=== PATIENT | female | born 1965 | race African-American/Black ===

== ENCOUNTER 2017-04-14 09:02 | Inpatient (IN) | payer MEDICARE, MEDICAID ==
[~2017-04-14] VITALS: Ht 170.2 cm; Wt 51.7 kg
[~2017-04-14 09:02] MED LIST: INSU3INS6 SUBCUT
[2017-04-14] MEDS ORDERED: DEXTROSE 50% WATER 50ML SYRINGE IV ONE ×2 (09:58→10:00)
[2017-04-14] MEDS ORDERED: DEXTROSE 5% WATER 1,000 ML IV ONE (10:00)
[2017-04-14 10:30] LABS: BASOPHILS % 0.9 % (0.0-2.0); HEMATOCRIT. 29.1 % (36.0-48.0); HEMOGLOBIN. 9.8 g/dL (12.0-16.0); LYMPHOCYTES % 38.3 % (20.0-50.0); MEAN CORPUSCULAR HEMOGLOBIN 31.2 pg (28.0-32.0); MEAN PLATELET VOLUME 8.7 fl (7.4-10.4); MONOCYTES % 12.7 % (2.0-8.0); NEUTROPHILS % 45.1 % (40.0-76.0); PLATELET 152 x1000/uL (130-400); RED BLOOD CELL COUNT 3.13 mill/uL (4.2-5.4); RED CELL DISTRIBUTION WIDTH 15.6 % (11.6-14.6)
[2017-04-14] MEDS ORDERED: DOPAMINE 400MG PREMIX 250 ML IV ONE (10:30)
[2017-04-14 10:39] LABS: INR 1.1; PARTIAL THROMBOPLASTIN TIME 32.3 sec (24.0-34.0); PROTHROMBIN TIME 11.3 sec
[2017-04-14 10:46] LABS: CARBON DIOXIDE 31 mEq/L (21-32); CHLORIDE 100 mEq/L (98-107); CREATINE KINASE 74 IU/L (26-192)
[2017-04-14 10:47] LABS: TROPONIN I < 0.02 ng/mL (0.00-0.04)
[2017-04-14] MEDS ORDERED: NA PHOS,M-B/NA PHOS,DI-BA ENEMA 118ML PR PRN (14:45)
[2017-04-14] MEDS ORDERED: ACETAMINOPHEN 325MG TABLET PO PRN (14:45)
[2017-04-14] MEDS ORDERED: CLONIDINE 0.1MG TABLET PO PRN (14:45)
[2017-04-14] MEDS ORDERED: DIPHENHYDRAMINE 50MG/ML VIAL IV PRN (14:45)
[2017-04-14] MEDS ORDERED: ONDANSETRON HCL 4MG/2ML VIAL IV PRN (14:45)
[2017-04-14] MEDS ORDERED: DOCUSATE SODIUM 100MG CAPSULE PO PRN (14:45)
[2017-04-14] MEDS ORDERED: MAGNESIUM/ALUMINUM HYDROXIDE/SIMETHICONE 30ML UDC PO PRN (14:45)
[2017-04-14] MEDS ORDERED: DEXTROSE 50% WATER 50ML SYRINGE IV PRN (14:45)
[2017-04-14] MEDS ORDERED: IPRATROPIUM/ALBUTEROL 0.5-3(2.5)MG/3ML NEB INH PRN (14:45)
[2017-04-14] MEDS: BLOOD SUGAR DIAGNOSTIC STRIP TEST SCH ×3 (16:44→20:58)
[2017-04-14] MEDS: INSULIN LISPRO 100 UNITS/ML SUBCUT SCH ×2 (17:42→21:24)
[2017-04-14] MEDS ORDERED: INSULIN LISPRO 100 UNITS/ML SUBCUT SCH (18:20)
[2017-04-14] MEDS: SODIUM CHLORIDE 0.9% INJ 3ML FLUSH IVF SCH (21:22)
[2017-04-14] MEDS ORDERED: INSULIN DETEMIR UD 100 UNITS/ML SYR SUBCUT SCH (22:00)
[2017-04-15] MEDS: BLOOD SUGAR DIAGNOSTIC STRIP TEST SCH ×2 (06:10→12:10)
[2017-04-15] MEDS: INSULIN LISPRO 100 UNITS/ML SUBCUT SCH ×2 (06:36→14:14)
[2017-04-15] MEDS: SODIUM CHLORIDE 0.9% INJ 3ML FLUSH IVF SCH ×2 (06:36→14:08)
[2017-04-15 15:50] VITALS: BP 122/81
== END 2017-04-15 16:50 | disposition home or self-care (01) | DRG 637 ==
LOC: ER 09:29 → EDBEDREQSVC 13:16 → EDBEDREQ 13:16 → ENRESERV 13:31 → 8WST 14:20
PROVIDERS: ADMIT Internal Medicine; ATTEND Internal Medicine
DX: E10.649 Type 1 diabetes mellitus with hypoglycemia without coma (principal); G93.41 Metabolic encephalopathy; I10 Essential (primary) hypertension; F99 Mental disorder, not otherwise specified; E78.00 Pure hypercholesterolemia, unspecified; Z79.4 Long term (current) use of insulin
CPT/HCPCS: 36415; 71010; 80053; 82550; 82962; 83036; 84484; 85025; 85610; 85730; 93005; 96374; 96376; 99285; J1815; J7070

== ENCOUNTER 2017-06-07 16:59 | Emergency (ER) | payer MEDICARE, MEDICAID ==
[~2017-06-07] VITALS: Ht 170.2 cm; Wt 505.0 kg
[2017-06-07 22:22] LABS: BASOPHILS % 0.9 % (0.0-2.0); HEMOGLOBIN. 12.1 g/dL (12.0-16.0); LYMPHOCYTES % 25.8 % (20.0-50.0); MEAN CORPUSCULAR HEMOGLOBIN 30.8 pg (28.0-32.0); MEAN CORPUSCULAR VOLUME 93.8 fL (81.0-99.0); MEAN PLATELET VOLUME 8.9 fl (7.4-10.4); MONOCYTES % 7.4 % (2.0-8.0); NEUTROPHILS % 64.9 % (40.0-76.0); PLATELET 211 x1000/uL (130-400); RED BLOOD CELL COUNT 3.95 mill/uL (4.2-5.4); RED CELL DISTRIBUTION WIDTH 13.6 % (11.6-14.6)
[2017-06-07 22:25] LABS: CHLORIDE 96 mEq/L (98-107)
[2017-06-07 22:29] LABS: CARBON DIOXIDE 26 mEq/L (21-32)
[2017-06-07] MEDS ORDERED: INSULIN REGULAR (HUMULIN R) UD 100 UNITS/ML SYR SUBCUT ONE ×2 (23:00→23:30)
[2017-06-07] MEDS ORDERED: INSULIN REGULAR (HUMULIN R) 300UNITS/3ML SUBCUT NR (23:45)
[2017-06-08] MEDS ORDERED: INSULIN REGULAR (HUMULIN R) UD 100 UNITS/ML SYR SUBCUT SCH ×2 (00:30→00:45)
[2017-06-08] MEDS ORDERED: INSULIN REGULAR (HUMULIN R) UD 100 UNITS/ML SYR SUBCUT ONE (00:30)
[2017-06-08 01:37] VITALS: BP 148/88
== END 2017-06-08 01:39 | disposition home or self-care (01) ==
LOC: ER 17:00
DX: E11.65 Type 2 diabetes mellitus with hyperglycemia (principal); F17.200 Nicotine dependence, unspecified, uncomplicated; Z79.4 Long term (current) use of insulin
CPT/HCPCS: 36415; 80053; 82962; 85025; 96372; 99284; J1815

== ENCOUNTER 2017-06-28 18:16 | Emergency (ER) | payer MEDICARE, MEDICAID ==
[~2017-06-28] VITALS: Ht 167.6 cm; Wt 50.0 kg
[~2017-06-28 18:16] MED LIST changes: +IOHEXOL-300 100 ML BOTTLE ONE; +SODIUM CHLORIDE 0.9% 10ML VIAL ONE
[2017-06-28 22:07] LABS: BASOPHILS % 0.3 % (0.0-2.0); EOSINOPHILS % 0.3 % (0.0-5.0); HEMATOCRIT. 29.8 % (36.0-48.0); HEMOGLOBIN. 9.6 g/dL (12.0-16.0); MEAN CORPUSCULAR HEMOGLOBIN 29.6 pg (28.0-32.0); MEAN CORPUSCULAR VOLUME 91.9 fL (81.0-99.0); MEAN PLATELET VOLUME 9.3 fl (7.4-10.4); NEUTROPHILS % 83.4 % (40.0-76.0); PLATELET 229 x1000/uL (130-400); RED BLOOD CELL COUNT 3.25 mill/uL (4.2-5.4); RED CELL DISTRIBUTION WIDTH 13.2 % (11.6-14.6)
[2017-06-28 22:10] LABS: CHLORIDE 103 mEq/L (98-107)
[2017-06-28 22:16] LABS: CARBON DIOXIDE 25 mEq/L (21-32)
[2017-06-28] MEDS ORDERED: SODIUM CHLORIDE 0.9% 1,000 ML IV ONE (23:45)
[2017-06-29 00:24] LABS: CLARITY URINE CLEAR (CLEAR); COLOR URINE YELLOW (YELLOW); GLUCOSE URINE 3+ (NEGATIVE); KETONES URINE 1+ (NEGATIVE); LEUKOCYTE ESTERASE URINE 1+ (NEGATIVE); NITRITE URINE NEGATIVE (NEGATIVE); OCCULT BLOOD URINE 1+ (NEGATIVE); PROTEIN URINE 1+ (NEGATIVE)
[2017-06-29] MEDS ORDERED: SULFAMETHOXAZOLE/TRIMETHOPRIM 800/160MG TABLET PO ONE (01:00)
[2017-06-29] MEDS ORDERED: CEFTRIAXONE 1 G PREMIX 50 ML IV ONE (01:00)
[2017-06-29 02:06] VITALS: BP 119/55
== END 2017-06-29 02:12 | disposition home or self-care (01) ==
LOC: ER 19:25
DX: L03.312 Cellulitis of back [any part except buttock and flank] (principal); N39.0 Urinary tract infection, site not specified; E11.65 Type 2 diabetes mellitus with hyperglycemia; Z79.4 Long term (current) use of insulin
CPT/HCPCS: 36415; 74177; 80053; 81001; 85025; 87086; 96361; 96365; 99285; A4216; J0696; J7030; Q9967

== ENCOUNTER 2018-01-12 08:36 | Inpatient (IN) | payer MEDICARE, MEDICAID ==
[~2018-01-12] VITALS: Ht 165.1 cm; Wt 48.5 kg
[~2018-01-12 08:36] MED LIST changes: -IOHEXOL-300 100 ML BOTTLE ONE; -SODIUM CHLORIDE 0.9% 10ML VIAL ONE
[2018-01-12] MEDS ORDERED: DEXTROSE 50% WATER 50ML SYRINGE IV ONE (09:03)
[2018-01-12 09:56] LABS: BASOPHILS % 1.3 % (0.0-2.0); EOSINOPHILS % 2.6 % (0.0-5.0); HEMATOCRIT. 37.5 % (36.0-48.0); HEMOGLOBIN. 12.5 g/dL (12.0-16.0); LYMPHOCYTES % 37.8 % (20.0-50.0); MEAN CORPUSCULAR HEMOGLOBIN 30.8 pg (28.0-32.0); MEAN CORPUSCULAR VOLUME 92.2 fL (81.0-99.0); MEAN PLATELET VOLUME 8.8 fl (7.4-10.4); MONOCYTES % 9.9 % (2.0-8.0); NEUTROPHILS % 48.4 % (40.0-76.0); PLATELET 197 x1000/uL (130-400); RED BLOOD CELL COUNT 4.06 mill/uL (4.2-5.4)
[2018-01-12 09:57] LABS: CHLORIDE 102 mEq/L (98-107)
[2018-01-12 09:58] LABS: INR 1.1; PROTHROMBIN TIME 11.3 sec (9.4-11.6)
[2018-01-12] MEDS ORDERED: ACETAMINOPHEN 325MG TABLET PO PRN (15:30)
[2018-01-12] MEDS ORDERED: MAGNESIUM/ALUMINUM HYDROXIDE/SIMETHICONE 30ML UDC PO PRN (15:30)
[2018-01-12] MEDS ORDERED: DEXTROSE 50% WATER 50ML SYRINGE IV PRN (15:30)
[2018-01-12] MEDS ORDERED: CLONIDINE 0.1MG TABLET PO PRN (15:30)
[2018-01-12] MEDS ORDERED: ONDANSETRON HCL 4MG/2ML VIAL IV PRN (15:30)
[2018-01-12] MEDS ORDERED: DIPHENHYDRAMINE 50MG/ML VIAL IV PRN (15:30)
[2018-01-12] MEDS ORDERED: INSULIN LISPRO 100 UNITS/ML SUBCUT ONE (16:08)
[2018-01-12] MEDS ORDERED: INSULIN LISPRO 100 UNITS/ML SUBCUT SCH (18:20)
[2018-01-12] MEDS: BLOOD SUGAR DIAGNOSTIC STRIP TEST SCH (21:00)
[2018-01-12] MEDS: SODIUM CHLORIDE 0.9% INJ 3ML FLUSH IVF SCH (22:41)
[2018-01-12] MEDS: INSULIN LISPRO 100 UNITS/ML SUBCUT SCH (22:44)
[2018-01-12 23:00] VITALS: BP 146/83
[2018-01-12 23:01] VITALS: BP 146/83
[2018-01-12] MEDS ORDERED: INSULIN GLARGINE UD 100 UNITS/ML SYR SUBCUT SCH (23:30)
[2018-01-13] VITALS (7 sets, daily range): BP systolic 110–158; BP diastolic 70–99
[2018-01-13] MEDS ORDERED: HYDRALAZINE HCL 10MG TABLET PO SCH
[2018-01-13] MEDS ORDERED: VALP250C3 PO (01:33)
[2018-01-13] MEDS ORDERED: BUPR200T PO (01:33)
[2018-01-13] MEDS ORDERED: [UNRECOGNIZED DRUG - CODE] PO (01:33)
[2018-01-13] MEDS ORDERED: LISI-604 PO (01:33)
[2018-01-13] MEDS ORDERED: LURA80TA PO (01:33)
[2018-01-13] MEDS ORDERED: DOCU-272 PO (01:33)
[2018-01-13] MEDS ORDERED: PANT40TA4 PO (01:33)
[2018-01-13] MEDS ORDERED: INSASP SUBCUT (01:33)
[2018-01-13] MEDS ORDERED: TRAZ300T11 PO (01:33)
[2018-01-13] MEDS ORDERED: SIMV20TA6 PO (01:33)
[2018-01-13] MEDS ORDERED: INSU300I SQ ×2 (01:33→01:36)
[2018-01-13] MEDS ORDERED: LEVO150T8 PO (01:33)
[2018-01-13 02:22] LABS: CLARITY URINE CLEAR (CLEAR); COLOR URINE YELLOW (YELLOW); KETONES URINE NEGATIVE (NEGATIVE); LEUKOCYTE ESTERASE URINE 2+ (NEGATIVE); NITRITE URINE NEGATIVE (NEGATIVE); OCCULT BLOOD URINE 1+ (NEGATIVE); PH URINE 6.5 (4.5-8.0); PROTEIN URINE TRACE (NEGATIVE); UROBILINOGEN URINE 0.2 E.U./dL (0.2-1.0)
[2018-01-13] MEDS: SODIUM CHLORIDE 0.9% INJ 3ML FLUSH IVF SCH ×3 (05:40→22:05)
[2018-01-13] MEDS: BLOOD SUGAR DIAGNOSTIC STRIP TEST SCH ×4 (06:24→21:00)
[2018-01-13] MEDS: INSULIN LISPRO 100 UNITS/ML SUBCUT SCH ×4 (06:24→22:09)
[2018-01-13] MEDS ORDERED: INSULIN LISPRO 100 UNITS/ML SUBCUT SCH (12:30)
[2018-01-13] MEDS ORDERED: INSULIN GLARGINE UD 100 UNITS/ML SYR SUBCUT SCH (23:30)
[2018-01-14] VITALS: BP 149/83
[2018-01-14 04:00] VITALS: BP 124/68
[2018-01-14] MEDS: SODIUM CHLORIDE 0.9% INJ 3ML FLUSH IVF SCH ×2 (05:48→14:05)
[2018-01-14] MEDS: INSULIN LISPRO 100 UNITS/ML SUBCUT SCH ×3 (06:48→18:04)
[2018-01-14] MEDS: BLOOD SUGAR DIAGNOSTIC STRIP TEST SCH ×3 (06:48→16:45)
[2018-01-14 08:00] VITALS: BP 155/94
[2018-01-14 12:00] VITALS: BP 135/68
[2018-01-14 16:00] VITALS: BP_SYST 157; BP_DIAS 89; BP_DIAS 99
[2018-01-14 18:58] VITALS: BP 157/89
== END 2018-01-14 20:06 | disposition home or self-care (01) | DRG 637 ==
LOC: ER 09:07 → 5WST 11:29 → ENRESERV 20:05
PROVIDERS: ADMIT Internal Medicine; ATTEND Internal Medicine
DX: E11.649 Type 2 diabetes mellitus with hypoglycemia without coma (principal); G93.41 Metabolic encephalopathy; E78.00 Pure hypercholesterolemia, unspecified; I10 Essential (primary) hypertension; F99 Mental disorder, not otherwise specified; E11.65 Type 2 diabetes mellitus with hyperglycemia; Z79.4 Long term (current) use of insulin; Z79.899 Other long term (current) drug therapy
CPT/HCPCS: 36415; 71045; 80053; 81003; 82962; 83036; 84484; 85025; 85610; 87086; 93005; 93970; 96372; 99285; J1815

== ENCOUNTER 2019-09-24 08:57 | Inpatient (IN) | payer MEDICARE, MEDICAID ==
[~2019-09-24] VITALS: Ht 170.2 cm; Wt 49.9 kg
[~2019-09-24 08:57] MED LIST changes: +BUPR200T PO; +DOCU-272 PO; +INSASP SUBCUT; +INSU300I SQ; -INSU3INS6 SUBCUT; +LEVO150T8 PO; +LISI-604 PO; +LURA80TA PO; +PANT40TA4 PO; +SIMV20TA6 PO; +TRAZ300T11 PO; +VALP250C3 PO; +[UNRECOGNIZED DRUG - CODE] PO
[2019-09-24] MEDS ORDERED: SODIUM CHLORIDE 0.9% 1,000 ML IV ONE ×2 (10:15→12:30)
[2019-09-24 10:32] LABS: BASOPHILS % 0.4 % (0.0-2.0); CHLORIDE 93 mEq/L (98-107); EOSINOPHILS % 0.2 % (0.0-5.0); HEMATOCRIT. 36.9 % (36.0-48.0); HEMOGLOBIN. 11.4 g/dL (12.0-16.0); LYMPHOCYTES % 13.8 % (20.0-50.0); MEAN CORPUSCULAR HEMOGLOBIN 32.1 pg (28.0-32.0); MEAN PLATELET VOLUME 9.5 fl (7.4-10.4); MONOCYTES % 4.7 % (2.0-8.0); NEUTROPHILS % 80.9 % (40.0-76.0); PLATELET 187 x1000/uL (130-400); RED BLOOD CELL COUNT 3.55 mill/uL (4.2-5.4); RED CELL DISTRIBUTION WIDTH 13.7 % (11.6-14.6)
[2019-09-24 10:54] LABS: PLATELET ESTIMATE NORMAL
[2019-09-24 12:16] LABS: CLARITY URINE CLEAR (CLEAR); COLOR URINE YELLOW (YELLOW); KETONES URINE 2+ (NEGATIVE); LEUKOCYTE ESTERASE URINE NEGATIVE (NEGATIVE); NITRITE URINE NEGATIVE (NEGATIVE); OCCULT BLOOD URINE TRACE (NEGATIVE); PROTEIN URINE TRACE (NEGATIVE); SPECIFIC GRAVITY URINE 1.021 (1.005-1.030); UROBILINOGEN URINE 0.2 E.U./dL (0.2-1.0)
[2019-09-24] MEDS ORDERED: SODIUM CHLORIDE 0.9% 1,000 ML IV SCH (12:17)
[2019-09-24] MEDS ORDERED: ACETAMINOPHEN 325MG TABLET PO PRN (12:30)
[2019-09-24] MEDS ORDERED: ONDANSETRON HCL 4MG/2ML INJ IV PRN (12:30)
[2019-09-24] MEDS ORDERED: INSULIN REGULAR (DRIP) 100 UNITS in SODIUM CHLORIDE 0.9% 100 ML IV ONE ×4 (12:30)
[2019-09-24] MEDS: SODIUM CHLORIDE 0.45% 1,000 ML IV SCH ×2 (14:09→21:28)
[2019-09-24 14:19] LABS: PHOSPHORUS 6.7 mg/dL (2.5-4.9)
[2019-09-24 14:21] LABS: BETA HYDROXYBUTYRATE 7.2 mMol/L (0.0-0.3)
[2019-09-24 14:26] LABS: T4 FREE 1.24 ng/dL (0.76-1.46)
[2019-09-24] MEDS ORDERED: DEXTROSE 50% WATER 50ML SYRINGE IV PRN (18:00)
[2019-09-24 20:00] VITALS: BP 167/87
[2019-09-24 21:00] VITALS: BP 167/87
[2019-09-24] MEDS: DOCUSATE SODIUM 100MG CAPSULE PO SCH (21:24)
[2019-09-24] MEDS: BLOOD SUGAR DIAGNOSTIC STRIP TEST SCH (21:29)
[2019-09-24] MEDS: INSULIN LISPRO (LOW DOSE) 100 UNITS/ML SUBCUT SCH (21:38)
[2019-09-24] MEDS: HEPARIN 5000 UNITS/ML VIAL SUBCUT SCH (21:39)
[2019-09-24 22:00] VITALS: BP 167/87
[2019-09-24] MEDS ORDERED: VALPROIC ACID 250MG CAPSULE PO SCH (22:00)
[2019-09-25] VITALS: BP 124/59
[2019-09-25 04:00] VITALS: BP 130/68
[2019-09-25] MEDS: BLOOD SUGAR DIAGNOSTIC STRIP TEST SCH (06:28)
[2019-09-25 06:33] LABS: EOSINOPHILS % 1.1 % (0.0-5.0); HEMATOCRIT. 35.3 % (36.0-48.0); HEMOGLOBIN. 11.9 g/dL (12.0-16.0); LYMPHOCYTES % 17.6 % (20.0-50.0); MEAN CORPUSCULAR HEMOGLOBIN 32.6 pg (28.0-32.0); MEAN CORPUSCULAR VOLUME 96.5 fL (81.0-99.0); MEAN PLATELET VOLUME 8.8 fl (7.4-10.4); MONOCYTES % 8.5 % (2.0-8.0); NEUTROPHILS % 71.8 % (40.0-76.0); PLATELET 172 x1000/uL (130-400); RED BLOOD CELL COUNT 3.66 mill/uL (4.2-5.4); RED CELL DISTRIBUTION WIDTH 13.5 % (11.6-14.6)
[2019-09-25 06:37] LABS: CHLORIDE 102 mEq/L (98-107)
[2019-09-25] MEDS ORDERED: LEVOTHYROXINE SODIUM 150MCG TABLET PO SCH (07:40)
[2019-09-25 08:00] VITALS: BP 118/68
[2019-09-25] MEDS ORDERED: PANTOPRAZOLE 40MG DR TABLET PO SCH (09:00)
[2019-09-25] MEDS: DOCUSATE SODIUM 100MG CAPSULE PO SCH (09:19)
[2019-09-25] MEDS: HEPARIN 5000 UNITS/ML VIAL SUBCUT SCH (09:19)
[2019-09-25] MEDS: INSULIN LISPRO (LOW DOSE) 100 UNITS/ML SUBCUT SCH (09:46)
[2019-09-25] MEDS: SODIUM CHLORIDE 0.45% 1,000 ML IV SCH (09:49)
[2019-09-25] MEDS ORDERED: INSULIN GLARGINE UD 100 UNITS/ML SYR SUBCUT SCH (10:00)
[2019-09-25 12:00] VITALS: BP 121/70
[2019-09-25 12:53] VITALS: BP 121/70
== END 2019-09-25 13:28 | disposition home or self-care (01) | DRG 637 ==
LOC: ER 08:57 → EDBEDREQ 11:44 → EDBEDREQTM 11:44 → EDBEDREQSVC 17:17 → ENRESERV 17:40 → 7WST 20:33
PROVIDERS: ADMIT Internal Medicine; ATTEND Internal Medicine
DX: E11.10 Type 2 diabetes mellitus with ketoacidosis without coma (principal); G93.41 Metabolic encephalopathy; N17.9 Acute kidney failure, unspecified; N39.0 Urinary tract infection, site not specified; E11.01 Type 2 diabetes mellitus with hyperosmolarity with coma; E86.0 Dehydration; E11.22 Type 2 diabetes mellitus with diabetic chronic kidney disease; E03.9 Hypothyroidism, unspecified; E78.00 Pure hypercholesterolemia, unspecified; I12.9 Hypertensive chronic kidney disease with stage 1 through stage 4 chronic kidney disease, or unspecified chronic kidney disease; I95.9 Hypotension, unspecified; E86.9 Volume depletion, unspecified; E78.5 Hyperlipidemia, unspecified; N18.9 Chronic kidney disease, unspecified; E87.5 Hyperkalemia; Z82.49 Family history of ischemic heart disease and other diseases of the circulatory system; Z83.3 Family history of diabetes mellitus; Z79.899 Other long term (current) drug therapy
CPT/HCPCS: 36415; 71045; 80053; 81003; 82010; 82962; 83036; 83605; 83735; 84100; 84145; 84439; 84443; 84484; 85025; 93005; 93306; 96361; 96374; 99291; J1644; J1815; J2405; J7030; J7050